=== PATIENT | female | born 1975 | race Hispanic/Latino ===

== ENCOUNTER → 2022-07-19 | Outpatient (CLI) | payer OTHER ==
[~2022-07-19] VITALS: Ht 5.1 cm; Wt 141.1 kg
== END | disposition home or self-care (01) ==
LOC: DTH 09:15
PROVIDERS: ATTEND Surgery
DX: Z71.3 Dietary counseling and surveillance (principal); E66.01 Morbid (severe) obesity due to excess calories; E11.9 Type 2 diabetes mellitus without complications; I10 Essential (primary) hypertension; M19.91 Primary osteoarthritis, unspecified site; E78.00 Pure hypercholesterolemia, unspecified; K21.9 Gastro-esophageal reflux disease without esophagitis; Z68.43 Body mass index [BMI] 50.0-59.9, adult
CPT/HCPCS: 97802